=== PATIENT | female | born 1995 | race African-American/Black ===

== ENCOUNTER 2024-09-23 11:54 | Emergency (ER) | payer MEDICAID, OTHER ==
[~2024-09-23] VITALS: Ht 162.6 cm; Wt 62.1 kg
[2024-09-23 12:25] VITALS: BP 117/77; TEMP 98.4
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
[2024-09-23 12:32] VITALS: PULSE 88; RESP 18; O2SAT 94
[2024-09-23] MEDS: HYDROcodone-ACET 10/325MG TAB PO ONE (12:39)
== END 2024-09-23 15:10 | disposition left against medical advice (07) ==
LOC: ER 11:54
DX: S01.81XA Laceration without foreign body of other part of head, initial encounter (principal); V39.9XXA Occupant (driver) (passenger) of three-wheeled motor vehicle injured in unspecified traffic accident, initial encounter; Y93.89 Activity, other specified; Y92.89 Other specified places as the place of occurrence of the external cause; Y99.8 Other external cause status